=== PATIENT | male | born 1960 | race Caucasian/White ===

== ENCOUNTER → 2018-05-12 | Outpatient (CLI) | payer OTHER | LOC: ULTRA 07:49 | DX: K76.0 Fatty (change of) liver, not elsewhere classified (principal) ==

== ENCOUNTER → 2018-06-23 | Outpatient (CLI) | payer OTHER | LOC: NUC 09:19 | DX: R10.11 Right upper quadrant pain (principal) ==

== ENCOUNTER → 2018-07-02 | Outpatient (CLI) | payer OTHER ==
[~2018-07-02] VITALS: Ht 188 cm; Wt 122.5 kg
[~2018-07-02] MED LIST: ACETAMINOPHEN-1 EAC1 PO; ASPIR 8181 MG PO; CRESTOR10 MG PO; INDOCIN50 MG PO; LISINOPRIL40 MG PO; PIOGLITAZONE15 MG PO
[2018-07-02 08:50] VITALS: BP 152/62
[2018-07-02 08:58] LABS: HEMATOCRIT 42.4 % (42.0-52.0); HEMOGLOBIN 14.6 gm/dL (14.0-18.0); MCH 30.5 pg (26.0-34.0); MCHC 34.4 g/dL (28.0-37.0); MCV 88.6 fL (80.0-100.0); RBC 4.78 mil/uL (4.50-6.00); RDW 13.3 % (10.5-14.5); WBC 6.3 thou/uL (4.0-11.0)
[2018-07-02 09:06] LABS: CALCIUM 9.8 mg/dL (8.5-10.1); CREATININE 1.1 mg/dL (0.7-1.3); POTASSIUM 4.3 mmol/L (3.5-5.1)
--- NOTE | 2018-07-10 02:17 | CATHLAB ---
[facility] [employer] [place] [address] INVASIVE PROCEDURE REPORT Name: DELMER MAGAÑA Room #: REG [facility]#: [id number] ������������� Admission: 07/02/18 ������������� Attend Phys: Cory Simms Discharge: ��� ������������� ��� Date of : 58 Date of Service: 07/10/18 0216 �� Report #: [id number] �������� ��������������������������������������������[id number] THIS REPORT FOR: //name// APPROVED REPORT Study performed: 07/02/2018 08:43:04 Patient Details Patient Status: In-Patient Room #: The patient is a 57 year-old male Event Personnel Cory Morillo External Relations Director, Huber Tucker RN, Ashwin Saavedra Brown, Roberta Monitor Procedures Performed Art Access - R femoral artery* Left Heart Cath w/or w/o Coronaries [id number] [facility] Hemostasis with Manual pressure 24070 Initial Mod Sed Same Phys/QHP Gr5y [id number] 01967 Mod Sed Same Phys/QHP Ea supervision of conscious sedation [id number] Indication Chest pain Procedure Narrative The Right Groin^ was infiltrated with 1% Lidocaine subcutaneous anesthesia. A PINNACLE 4FR Sheath #[id number] sheath was inserted into the RFA^. Coronary angiography was performed using coronary diagnostic catheters. The right coronary system was accessed and visualized with a jr4 catheter. The left coronary system was accessed and visualized with a jl4 catheter. The left ventricle was accessed and visualized with a angle pig catheter. Hemostasis was obtained with manual pressure following sheath removal without any complications. The patient tolerated the procedure well and there were no complications associated with the procedure. There was no hematoma. Intraoperative Conscious Sedation Sedation start time: 1030 Case end Time: 1100 Versed 2 mg Fluoro Time: 2.40 minutes Dose: DAP 4130.15 cGycm2 Contrast Type and Amount: Omnipaque 60 ml [facility] [address] [address] INVASIVE PROCEDURE REPORT Name: DELMER MAGAÑA DAMIR Room #: REG COUNTS INCLUDE 234 BEDS AT THE [facility].#: [id number] ������������� Admission: 07/02/18 ������������� Attend Phys: Cory Simms Discharge: ��� ������������� ��� Date of : 58 Date of Service: 07/10/18 0216 �� Report #: [id number] �������� ��������������������������������������������[id number] Coronary Angiography The patient's coronary anatomy is right dominant. Diagnostic Cath Left Main Large-caliber vessel of normal origin of a consultants into the descending left circumflex. Has mild distal tapering but no obstructive lesions are noted. LAD Moderate caliber type III vessel courses in the anterior interventricular sulcus skin (F9 no branches as it proceeds and terminates in the posterior aspect of the left ventricle. It is free of significant high-grade obstructive lesions Diagonal 1 small moderate caliber vessel coursing anterolateral wall of the left ventricle. High-grade disease Circumflex Moderate caliber vessel his regimen early marginal versus ramus branch. The continues in the AV groove to the lateral aspect of the heart is one large OM1 moderate caliber vessel is significant high-grade lesions Right Coronary Moderate to large caliber vessel of normal origin and has a proximal tapering is not flow-limiting. The continues in the AV groove to the crux of the hardware posterior descending artery arises. R PDA Multiple moderate caliber vessel with luminal irregularities but no high-grade lesions are present Left Ventriculography Left Ventriculography was not performed. Hemodynamics The aortic pressure is 156/68 mmHg with a mean of 106 mmHg. The left ventricular pressure is 146/9 mmHg with a mean of mmHg. The left ventricular end diastolic pressure is 22 mmHg. Conclusion 1. Coronary disease mild nonobstructive 2. Normal hemodynamics Recommendations Cardiac Risk Reduction Program Medical Therapy ��������������������������������������������� <ELECTRONICALLY SIGNED> ���������������������������������������� By: Cory Morillo MD ��������������������������������������������� 07/10/18215 5 5 Cory Morillo MD /INF
== END | disposition home or self-care (01) ==
LOC: CATH 08:03
PROVIDERS: Internal Medicine
DX: I25.10 Atherosclerotic heart disease of native coronary artery without angina pectoris (principal); I10 Essential (primary) hypertension; E78.5 Hyperlipidemia, unspecified; E11.9 Type 2 diabetes mellitus without complications; G62.9 Polyneuropathy, unspecified; Z87.891 Personal history of nicotine dependence; Z82.49 Family history of ischemic heart disease and other diseases of the circulatory system; Z79.4 Long term (current) use of insulin; Z96.652 Presence of left artificial knee joint; Z98.890 Other specified postprocedural states; Z79.899 Other long term (current) drug therapy; Z79.82 Long term (current) use of aspirin